=== PATIENT | male | born 1950 | race Caucasian/White ===

== ENCOUNTER 2021-06-13 14:06 | Inpatient (IN) | payer MEDICARE, OTHER ==
[~2021-06-13] VITALS: Ht 182.9 cm; Wt 90.7 kg
[2021-06-13] MEDS ORDERED: AMLO-213 PO (14:22)
[2021-06-13] MEDS ORDERED: DULO20CA19 PO (14:22)
[2021-06-13] MEDS ORDERED: DIVA250T PO (14:22)
[2021-06-13] MEDS ORDERED: MULT-447 PO (14:22)
[2021-06-13] MEDS ORDERED: OLAN10TA3 PO (14:22)
[2021-06-13] MEDS ORDERED: CELE100C PO (14:22)
[2021-06-13] MEDS ORDERED: OLAN20TA3 PO (14:22)
[2021-06-13] MEDS ORDERED: GABA-532 PO (14:22)
[2021-06-13 15:18] LABS: BASOPHILS % (AUTO) 0.5 % (0.0-2.0); EOSINOPHILS % (AUTO) 7.6 % (0.0-6.0); HEMATOCRIT 38 % (39-51); HEMOGLOBIN 12.8 g/dL (13.5-17.5); LYMPHOCYTES # (AUTO) 1.7 K/uL (0.8-4.8); MEAN CORPUSCULAR HGB CONC 34 g/dl (31.0-36.0); MEAN CORPUSCULAR VOLUME 87 fL (80-96); MONOCYTES # (AUTO) 0.7 K/uL (0.1-1.30); MONOCYTES % (AUTO) 16.4 % (2.0-12.0); NEUTROPHILS # (AUTO) 1.7 K/uL (1.8-8.9); NEUTROPHILS % (AUTO) 37.5 % (43.0-81.0); PLATELET COUNT (AUTO) 119 K/uL (150-450); RED BLOOD CELL COUNT(AUTO) 4.36 MIL/uL (4.5-6.0); WHITE BLOOD COUNT (AUTO) 4.5 K/uL (4.3-11.0)
[2021-06-13 15:37] LABS: ALBUMIN 2.7 g/dL (3.4-5.0); BILIRUBIN,DIRECT 0.1 mg/dL (0.0-0.2); BILIRUBIN,TOTAL 0.3 mg/dL (0.2-1.0); CALCIUM, SERUM 8.3 mg/dL (8.5-10.1); CREATININE 1.2 mg/dL (0.6-1.3); POTASSIUM 3.9 mmol/L (3.5-5.1); TOTAL PROTEIN, SERUM 6.4 g/dL (6.4-8.2)
[2021-06-13 16:35] LABS: BAND % (MANUAL) 1 % (0.0-5.0); EOSINOPHILS % (MANUAL) 6 % (0-4); LYMPHOCYTES % (MANUAL) 41 % (16-48); MONOCYTES % (MANUAL) 13 % (0-11.0); NEUTROPHILS % (MANUAL) 39 (42-76)
[2021-06-13 17:07] LABS: BILIRUBIN,URINE NEGATIVE (NEGATIVE); COLOR,URINE YELLOW (YELLOW); LEUKOCYTE ESTERASE ,URINE NEGATIVE (NEGATIVE); NITRITE, URINE NEGATIVE (NEGATIVE); PROTEIN,URINE NEGATIVE (NEGATIVE); UGLUCOSE NEGATIVE (NEGATIVE)
[2021-06-13 17:30] LABS: BACTERIA,URINE None seen /HPF (None Seen); RBC,URINE 0-2 /HPF (0-2); SQUAMOUS EPITHELIAL CELL,UR 0-2 /HPF (None Seen); WBC,URINE 0-2 /HPF (0-3)
[2021-06-13 17:31] LABS: MUCUS,URINE Many /LPF (None Seen)
[2021-06-13] MEDS ORDERED: MAGNESIUM HYDROXIDE 30 ML UDC PO PRN (21:00)
[2021-06-13] MEDS ORDERED: MAG HYDROX/AL HYDROX/SIMETH 30 ML UDC PO PRN (21:00)
[2021-06-13] MEDS ORDERED: BLOOD SUGAR DIAGNOSTIC 1 EACH STRIP IN ONE (21:00)
[2021-06-13] MEDS ORDERED: LORAZEPAM 0.5 MG TABLET PO PRN (21:00)
[2021-06-13] MEDS ORDERED: ZOLPIDEM TARTRATE 5 MG TABLET PO PRN (21:00)
[2021-06-13 22:19] VITALS: BP 140/88
[2021-06-14 08:00] VITALS: BP 130/83
[2021-06-14 08:18] LABS: CHOLESTEROL 111 mg/dL (<200); HDL CHOLESTEROL 46 mg/dL (40-60); LDL 58 mg/dL (0-99); TRIGLYCERIDES 60 mg/dL (30-150)
[2021-06-14 08:20] LABS: ALBUMIN 2.6 g/dL (3.4-5.0); BILIRUBIN,TOTAL 0.3 mg/dL (0.2-1.0); CALCIUM, SERUM 8.6 mg/dL (8.5-10.1); CREATININE 0.8 mg/dL (0.6-1.3); TOTAL PROTEIN, SERUM 6.3 g/dL (6.4-8.2)
[2021-06-14] MEDS ORDERED: DULOXETINE HCL 30 MG CAPSULE.DR PO SCH (10:00)
[2021-06-14] MEDS: OLANZAPINE 10 MG TABLET PO SCH ×2 (11:21→21:24)
[2021-06-14] MEDS: DIVALPROEX SODIUM 250 MG TABLET.DR PO SCH ×2 (11:22→16:11)
[2021-06-14] MEDS: GABAPENTIN 100 MG CAPSULE PO SCH ×2 (11:22→16:11)
[2021-06-14 16:00] VITALS: BP 128/83
[2021-06-14] MEDS ORDERED: GABAPENTIN 100 MG CAPSULE PO SCH (19:30)
[2021-06-14 19:40] VITALS: BP 127/68
[2021-06-15 08:00] VITALS: BP 120/67
[2021-06-15] MEDS: DULOXETINE HCL 20 MG CAPSULE.DR PO SCH (08:35)
[2021-06-15] MEDS: LORATADINE 10 MG TABLET PO SCH (08:35)
[2021-06-15] MEDS: AMLODIPINE BESYLATE 10 MG TABLET PO SCH (08:36)
[2021-06-15] MEDS: CELECOXIB 100 MG CAPSULE PO SCH ×2 (08:36→17:54)
[2021-06-15] MEDS: MULTIVITAMINS,THERAGRAN 1 UDTAB TABLET PO SCH (08:36)
[2021-06-15] MEDS: OLANZAPINE 10 MG TABLET PO SCH ×2 (08:36→21:14)
[2021-06-15] MEDS: GABAPENTIN 100 MG CAPSULE PO SCH ×2 (08:37→17:54)
[2021-06-15] MEDS: DIVALPROEX SODIUM 250 MG TABLET.DR PO SCH ×2 (08:37→17:54)
[2021-06-15] MEDS ORDERED: DIVALPROEX SODIUM 500 MG TABLET.DR PO SCH (09:00)
[2021-06-15 16:00] VITALS: BP 124/85
[2021-06-15 20:00] VITALS: BP 138/91
[2021-06-15 20:05] VITALS: BP 138/91
[2021-06-16 08:00] VITALS: BP 113/72
[2021-06-16 08:18] LABS: BASOPHILS % (AUTO) 0.6 % (0.0-2.0); EOSINOPHILS % (AUTO) 6.6 % (0.0-6.0); HEMATOCRIT 39 % (39-51); HEMOGLOBIN 13.3 g/dL (13.5-17.5); LYMPHOCYTES # (AUTO) 1.7 K/uL (0.8-4.8); LYMPHOCYTES % (AUTO) 42.6 % (20.0-44.0); MEAN CORPUSCULAR HGB CONC 34 g/dl (31.0-36.0); MEAN CORPUSCULAR VOLUME 87 fL (80-96); MONOCYTES # (AUTO) 0.6 K/uL (0.1-1.30); NEUTROPHILS # (AUTO) 1.4 K/uL (1.8-8.9); NEUTROPHILS % (AUTO) 35.2 % (43.0-81.0); PLATELET COUNT (AUTO) 128 K/uL (150-450); RED BLOOD CELL COUNT(AUTO) 4.46 MIL/uL (4.5-6.0)
[2021-06-16] MEDS: CELECOXIB 100 MG CAPSULE PO SCH ×2 (08:49→16:40)
[2021-06-16] MEDS: GABAPENTIN 100 MG CAPSULE PO SCH ×2 (08:49→16:40)
[2021-06-16] MEDS: DIVALPROEX SODIUM 250 MG TABLET.DR PO SCH ×2 (08:49→16:40)
[2021-06-16] MEDS: MULTIVITAMINS,THERAGRAN 1 UDTAB TABLET PO SCH (08:49)
[2021-06-16] MEDS: LORATADINE 10 MG TABLET PO SCH (08:49)
[2021-06-16] MEDS: DULOXETINE HCL 20 MG CAPSULE.DR PO SCH (08:49)
[2021-06-16] MEDS: OLANZAPINE 10 MG TABLET PO SCH ×2 (08:50→21:26)
[2021-06-16] MEDS: AMLODIPINE BESYLATE 10 MG TABLET PO SCH (08:50)
[2021-06-16 09:36] LABS: THYROID STIMULATING HORMONE 4.308 uIU/mL (0.358-3.74)
[2021-06-16 16:00] VITALS: BP 126/77
[2021-06-16 20:01] VITALS: BP 125/89
[2021-06-16 21:33] VITALS: BP 125/89
[2021-06-17 08:00] VITALS: BP 146/91
[2021-06-17 08:06] LABS: *ANA ANTI-CENTROMERE B AB <0.2 AI (0.0-0.9); *ANA ANTI-DNA(DS) AB, QN 1 IU/mL (0-9); *ANA ANTI-JO-1 <0.2 AI (0.0-0.9); *ANA ANTICHROMATIN ANTIBODY <0.2 AI (0.0-0.9); *ANA RNP ANTIBODIES 0.5 AI (0.0-0.9); *ANA SJOGREN'S ANTI-SS-A <0.2 AI (0.0-0.9); *ANA SJOGREN'S ANTI-SS-B <0.2 AI (0.0-0.9); *ANAANTI-SCLERODERMA-70 AB <0.2 AI (0.0-0.9); *ANASMITH AB <0.2 AI (0.0-0.9)
[2021-06-17] MEDS: LORATADINE 10 MG TABLET PO SCH (08:16)
[2021-06-17] MEDS: MULTIVITAMINS,THERAGRAN 1 UDTAB TABLET PO SCH (08:16)
[2021-06-17] MEDS: GABAPENTIN 100 MG CAPSULE PO SCH ×3 (08:16→16:07)
[2021-06-17] MEDS: OLANZAPINE 10 MG TABLET PO SCH ×2 (08:16→21:51)
[2021-06-17] MEDS: DIVALPROEX SODIUM 250 MG TABLET.DR PO SCH ×2 (08:16→16:07)
[2021-06-17] MEDS: CELECOXIB 100 MG CAPSULE PO SCH ×2 (08:17→16:07)
[2021-06-17] MEDS: AMLODIPINE BESYLATE 10 MG TABLET PO SCH (08:17)
[2021-06-17] MEDS: DULOXETINE HCL 20 MG CAPSULE.DR PO SCH (08:19)
[2021-06-17] MEDS: ACETAMINOPHEN 325 MG TABLET PO PRN (17:13)
[2021-06-17 19:58] VITALS: BP 137/80
[2021-06-17 21:08] LABS: OCCULT BLOOD STOOL NEGATIVE (NEGATIVE)
[2021-06-18 08:00] VITALS: BP 99/72
[2021-06-18] MEDS: DIVALPROEX SODIUM 250 MG TABLET.DR PO SCH ×2 (08:42→16:51)
[2021-06-18] MEDS: MULTIVITAMINS,THERAGRAN 1 UDTAB TABLET PO SCH (08:43)
[2021-06-18] MEDS: CELECOXIB 100 MG CAPSULE PO SCH ×4 (08:43→17:00)
[2021-06-18] MEDS: DULOXETINE HCL 20 MG CAPSULE.DR PO SCH (08:43)
[2021-06-18] MEDS: OLANZAPINE 10 MG TABLET PO SCH ×2 (08:43→21:33)
[2021-06-18] MEDS: AMLODIPINE BESYLATE 10 MG TABLET PO SCH (08:44)
[2021-06-18] MEDS: GABAPENTIN 100 MG CAPSULE PO SCH ×3 (08:44→16:51)
[2021-06-18] MEDS: LORATADINE 10 MG TABLET PO SCH ×2 (08:44→08:55)
[2021-06-18 11:37] LABS: BASOPHILS % (AUTO) 0.6 % (0.0-2.0); EOSINOPHILS % (AUTO) 5.8 % (0.0-6.0); HEMATOCRIT 41 % (39-51); HEMOGLOBIN 13.8 g/dL (13.5-17.5); LYMPHOCYTES % (AUTO) 39.1 % (20.0-44.0); MEAN CORPUSCULAR HGB CONC 34 g/dl (31.0-36.0); MEAN CORPUSCULAR VOLUME 87 fL (80-96); MONOCYTES # (AUTO) 0.8 K/uL (0.1-1.30); MONOCYTES % (AUTO) 15.1 % (2.0-12.0); NEUTROPHILS % (AUTO) 39.4 % (43.0-81.0); PLATELET COUNT (AUTO) 134 K/uL (150-450); RED BLOOD CELL COUNT(AUTO) 4.67 MIL/uL (4.5-6.0); WHITE BLOOD COUNT (AUTO) 5.2 K/uL (4.3-11.0)
[2021-06-18 12:49] LABS: BAND % (MANUAL) 4 % (0.0-5.0); EOSINOPHILS % (MANUAL) 5 % (0-4); LYMPHOCYTES % (MANUAL) 31 % (16-48); MONOCYTES % (MANUAL) 18 % (0-11.0); NEUTROPHILS % (MANUAL) 42 (42-76)
[2021-06-18 16:00] VITALS: BP 101/61
[2021-06-18 21:05] VITALS: BP 126/90
[2021-06-18] MEDS: ACETAMINOPHEN 325 MG TABLET PO PRN (23:36)
[2021-06-19] MEDS: LORATADINE 10 MG TABLET PO SCH (07:57)
[2021-06-19] MEDS: MULTIVITAMINS,THERAGRAN 1 UDTAB TABLET PO SCH (07:57)
[2021-06-19] MEDS: DULOXETINE HCL 20 MG CAPSULE.DR PO SCH (07:57)
[2021-06-19] MEDS: AMLODIPINE BESYLATE 10 MG TABLET PO SCH (07:58)
[2021-06-19] MEDS: DIVALPROEX SODIUM 250 MG TABLET.DR PO SCH ×2 (07:58→16:29)
[2021-06-19] MEDS: GABAPENTIN 100 MG CAPSULE PO SCH ×3 (07:58→16:29)
[2021-06-19] MEDS: CELECOXIB 100 MG CAPSULE PO SCH ×2 (07:58→16:29)
[2021-06-19 08:00] VITALS: BP 138/76
[2021-06-19] MEDS: FERROUS SULFATE (325 MG) 325 MG/TAB TABLET PO SCH ×2 (08:01→16:29)
[2021-06-19] MEDS: OLANZAPINE 10 MG TABLET PO SCH ×2 (08:01→21:20)
[2021-06-19] MEDS: FOLIC ACID 1 MG TABLET PO SCH (08:01)
[2021-06-19] MEDS: LEVOTHYROXINE SODIUM 25 MCG TABLET PO SCH (10:08)
[2021-06-19 20:00] VITALS: BP 118/62
[2021-06-20] MEDS: DULOXETINE HCL 20 MG CAPSULE.DR PO SCH (08:58)
[2021-06-20] MEDS: LEVOTHYROXINE SODIUM 25 MCG TABLET PO SCH (08:58)
[2021-06-20] MEDS: MULTIVITAMINS,THERAGRAN 1 UDTAB TABLET PO SCH (08:59)
[2021-06-20] MEDS: DIVALPROEX SODIUM 250 MG TABLET.DR PO SCH ×2 (08:59→16:23)
[2021-06-20] MEDS: LORATADINE 10 MG TABLET PO SCH (08:59)
[2021-06-20] MEDS: GABAPENTIN 100 MG CAPSULE PO SCH ×3 (08:59→16:23)
[2021-06-20] MEDS: AMLODIPINE BESYLATE 10 MG TABLET PO SCH (08:59)
[2021-06-20] MEDS: CELECOXIB 100 MG CAPSULE PO SCH ×2 (08:59→16:24)
[2021-06-20] MEDS: FOLIC ACID 1 MG TABLET PO SCH (08:59)
[2021-06-20] MEDS: FERROUS SULFATE (325 MG) 325 MG/TAB TABLET PO SCH ×2 (08:59→16:23)
[2021-06-20] MEDS: OLANZAPINE 10 MG TABLET PO SCH ×2 (09:00→21:00)
[2021-06-20 16:00] VITALS: BP 141/91
[2021-06-20 19:59] VITALS: BP 115/75
[2021-06-21] MEDS: LEVOTHYROXINE SODIUM 25 MCG TABLET PO SCH (06:37)
[2021-06-21 08:00] VITALS: BP 149/93
[2021-06-21] MEDS: FOLIC ACID 1 MG TABLET PO SCH (09:07)
[2021-06-21] MEDS: DULOXETINE HCL 20 MG CAPSULE.DR PO SCH (09:07)
[2021-06-21] MEDS: FERROUS SULFATE (325 MG) 325 MG/TAB TABLET PO SCH ×2 (09:07→17:34)
[2021-06-21] MEDS: DIVALPROEX SODIUM 250 MG TABLET.DR PO SCH ×2 (09:07→17:34)
[2021-06-21] MEDS: LORATADINE 10 MG TABLET PO SCH (09:08)
[2021-06-21] MEDS: OLANZAPINE 10 MG TABLET PO SCH ×2 (09:08→21:01)
[2021-06-21] MEDS: MULTIVITAMINS,THERAGRAN 1 UDTAB TABLET PO SCH (09:08)
[2021-06-21] MEDS: GABAPENTIN 100 MG CAPSULE PO SCH ×3 (09:08→17:35)
[2021-06-21] MEDS: CELECOXIB 100 MG CAPSULE PO SCH ×2 (09:08→17:00)
[2021-06-21] MEDS: AMLODIPINE BESYLATE 10 MG TABLET PO SCH (09:08)
[2021-06-21 16:00] VITALS: BP 145/96
[2021-06-21 20:00] VITALS: BP 143/86
[2021-06-21 20:04] VITALS: BP 143/86
[2021-06-22] MEDS: LEVOTHYROXINE SODIUM 25 MCG TABLET PO SCH ×2 (07:30→09:24)
[2021-06-22 08:00] VITALS: BP 134/85
[2021-06-22] MEDS: GABAPENTIN 100 MG CAPSULE PO SCH ×5 (08:42→17:35)
[2021-06-22] MEDS: FOLIC ACID 1 MG TABLET PO SCH ×2 (08:43→09:00)
[2021-06-22] MEDS: OLANZAPINE 10 MG TABLET PO SCH ×3 (08:43→21:58)
[2021-06-22] MEDS: DULOXETINE HCL 20 MG CAPSULE.DR PO SCH ×3 (08:43→09:25)
[2021-06-22] MEDS: FERROUS SULFATE (325 MG) 325 MG/TAB TABLET PO SCH ×4 (08:43→17:35)
[2021-06-22] MEDS: MULTIVITAMINS,THERAGRAN 1 UDTAB TABLET PO SCH ×2 (08:43→09:00)
[2021-06-22] MEDS: DIVALPROEX SODIUM 250 MG TABLET.DR PO SCH ×4 (08:43→17:35)
[2021-06-22] MEDS: AMLODIPINE BESYLATE 10 MG TABLET PO SCH ×2 (08:43→09:00)
[2021-06-22] MEDS: CELECOXIB 100 MG CAPSULE PO SCH ×3 (08:44→17:35)
[2021-06-22] MEDS: LORATADINE 10 MG TABLET PO SCH ×2 (08:44→09:00)
[2021-06-22 10:16] LABS: BASOPHILS % (AUTO) 0.6 % (0.0-2.0); EOSINOPHILS % (AUTO) 9.4 % (0.0-6.0); HEMATOCRIT 36 % (39-51); HEMOGLOBIN 12.6 g/dL (13.5-17.5); LYMPHOCYTES # (AUTO) 1.9 K/uL (0.8-4.8); LYMPHOCYTES % (AUTO) 37.7 % (20.0-44.0); MEAN CORPUSCULAR HGB CONC 35 g/dl (31.0-36.0); MEAN CORPUSCULAR VOLUME 86 fL (80-96); MONOCYTES # (AUTO) 0.5 K/uL (0.1-1.30); MONOCYTES % (AUTO) 9.6 % (2.0-12.0); NEUTROPHILS # (AUTO) 2.2 K/uL (1.8-8.9); NEUTROPHILS % (AUTO) 42.7 % (43.0-81.0); PLATELET COUNT (AUTO) 110 K/uL (150-450); RED BLOOD CELL COUNT(AUTO) 4.23 MIL/uL (4.5-6.0); WHITE BLOOD COUNT (AUTO) 5.1 K/uL (4.3-11.0)
[2021-06-22 11:26] LABS: ALBUMIN 2.5 g/dL (3.4-5.0); BILIRUBIN,TOTAL 0.3 mg/dL (0.2-1.0); CREATININE 0.8 mg/dL (0.6-1.3); POTASSIUM 3.7 mmol/L (3.5-5.1); TOTAL PROTEIN, SERUM 6.1 g/dL (6.4-8.2)
[2021-06-22 16:00] VITALS: BP 117/74
[2021-06-22 20:00] VITALS: BP 149/92
[2021-06-23] MEDS: LEVOTHYROXINE SODIUM 25 MCG TABLET PO SCH (07:44)
[2021-06-23 08:00] VITALS: BP 134/78
[2021-06-23] MEDS: FOLIC ACID 1 MG TABLET PO SCH (08:51)
[2021-06-23] MEDS: GABAPENTIN 100 MG CAPSULE PO SCH ×3 (08:52→16:47)
[2021-06-23] MEDS: MULTIVITAMINS,THERAGRAN 1 UDTAB TABLET PO SCH (08:52)
[2021-06-23] MEDS: OLANZAPINE 10 MG TABLET PO SCH ×2 (08:52→21:15)
[2021-06-23] MEDS: FERROUS SULFATE (325 MG) 325 MG/TAB TABLET PO SCH ×2 (08:54→16:47)
[2021-06-23] MEDS: AMLODIPINE BESYLATE 10 MG TABLET PO SCH (08:54)
[2021-06-23] MEDS: LORATADINE 10 MG TABLET PO SCH (08:54)
[2021-06-23] MEDS: CELECOXIB 100 MG CAPSULE PO SCH ×2 (08:56→16:47)
[2021-06-23] MEDS: DULOXETINE HCL 20 MG CAPSULE.DR PO SCH (08:56)
[2021-06-23] MEDS: DIVALPROEX SODIUM 250 MG TABLET.DR PO SCH ×2 (09:04→16:58)
[2021-06-23 16:00] VITALS: BP 114/60
[2021-06-23 20:00] VITALS: BP 127/82
[2021-06-23] MEDS: TAMSULOSIN 0.4 MG CAP.SR.24H PO SCH (21:15)
[2021-06-24 08:00] VITALS: BP 120/78
[2021-06-24] MEDS: DULOXETINE HCL 20 MG CAPSULE.DR PO SCH (08:17)
[2021-06-24] MEDS: MULTIVITAMINS,THERAGRAN 1 UDTAB TABLET PO SCH (08:18)
[2021-06-24] MEDS: FOLIC ACID 1 MG TABLET PO SCH (08:18)
[2021-06-24] MEDS: AMLODIPINE BESYLATE 10 MG TABLET PO SCH ×2 (08:18→09:00)
[2021-06-24] MEDS: DIVALPROEX SODIUM 250 MG TABLET.DR PO SCH ×2 (08:18→16:35)
[2021-06-24] MEDS: OLANZAPINE 10 MG TABLET PO SCH ×2 (08:19→21:20)
[2021-06-24] MEDS: LEVOTHYROXINE SODIUM 25 MCG TABLET PO SCH (08:19)
[2021-06-24] MEDS: FERROUS SULFATE (325 MG) 325 MG/TAB TABLET PO SCH ×2 (08:19→16:35)
[2021-06-24] MEDS: LORATADINE 10 MG TABLET PO SCH ×2 (08:19→09:00)
[2021-06-24] MEDS: CELECOXIB 100 MG CAPSULE PO SCH ×3 (08:19→16:35)
[2021-06-24] MEDS: GABAPENTIN 100 MG CAPSULE PO SCH ×3 (08:19→16:35)
[2021-06-24] MEDS: FINASTERIDE (5 MG) 5 MG TABLET PO SCH (08:21)
[2021-06-24 16:00] VITALS: BP 139/81
[2021-06-24 20:00] VITALS: BP 112/84
[2021-06-24] MEDS: TAMSULOSIN 0.4 MG CAP.SR.24H PO SCH (21:20)
[2021-06-25 08:00] VITALS: BP 127/75
[2021-06-25] MEDS: GABAPENTIN 100 MG CAPSULE PO SCH ×2 (08:11→12:09)
[2021-06-25] MEDS: DULOXETINE HCL 20 MG CAPSULE.DR PO SCH (08:11)
[2021-06-25] MEDS: DIVALPROEX SODIUM 250 MG TABLET.DR PO SCH (08:11)
[2021-06-25] MEDS: OLANZAPINE 10 MG TABLET PO SCH (08:12)
[2021-06-25] MEDS: LEVOTHYROXINE SODIUM 25 MCG TABLET PO SCH (08:12)
[2021-06-25] MEDS: FINASTERIDE (5 MG) 5 MG TABLET PO SCH (08:12)
[2021-06-25] MEDS: FOLIC ACID 1 MG TABLET PO SCH (08:12)
[2021-06-25] MEDS: MULTIVITAMINS,THERAGRAN 1 UDTAB TABLET PO SCH (08:12)
[2021-06-25] MEDS: FERROUS SULFATE (325 MG) 325 MG/TAB TABLET PO SCH (08:12)
[2021-06-25] MEDS: LORATADINE 10 MG TABLET PO SCH (09:00)
[2021-06-25] MEDS: AMLODIPINE BESYLATE 10 MG TABLET PO SCH (09:00)
[2021-06-25] MEDS: CELECOXIB 100 MG CAPSULE PO SCH (09:00)
== END 2021-06-25 13:45 | DRG 885 ==
LOC: ER 14:11 → GPS 19:41
PROVIDERS: ADMIT Psychiatry & Neurology Psychiatry
DX: F31.64 Bipolar disorder, current episode mixed, severe, with psychotic features (principal); D61.818 Other pancytopenia; N13.30 Unspecified hydronephrosis; E44.0 Moderate protein-calorie malnutrition; I10 Essential (primary) hypertension; N40.0 Benign prostatic hyperplasia without lower urinary tract symptoms; E03.9 Hypothyroidism, unspecified; E88.09 Other disorders of plasma-protein metabolism, not elsewhere classified; Z86.19 Personal history of other infectious and parasitic diseases; L98.9 Disorder of the skin and subcutaneous tissue, unspecified; D50.9 Iron deficiency anemia, unspecified; Z20.822 Contact with and (suspected) exposure to COVID-19
CPT/HCPCS: 36415; 74018; 76700-TC; 76856-TC; 80048-TC; 80053-TC; 80061-TC; 80076-TC; 80164-TC; 81001; 82272-TC; 82728-TC; 82962-TC; 83540-TC; 84439-TC; 84443-TC; 85025-TC; 86225; 86235; 86431-TC; 86706; 86803; 87081-TC; 87340; C9803; G0480